=== PATIENT | female | born 1940 | race American Indian/Alaskan Native ===

== ENCOUNTER 2016-12-20 08:06 | Day surgery (SDC) | payer MEDICARE ==
[2016-12-20] MEDS ORDERED: ECOTRIN PO ONE (08:41)
[2016-12-20] MEDS ORDERED: NACL 0.9% 500 ML 500 ML IV SCH (09:00)
[2016-12-20 09:03] LABS: Hemoglobin 11.2 gm/dl (10.1-14.3); Mean Corpuscular HGB Conc 32 % (30-34); Mean Corpuscular Hemoglobin 28 pg (28-32); Mean Corpuscular Volume 86 fl (79-97); Platelet Count 148 K/mm3 (140-440); Red Blood Count 4.09 M/mm3 (3.65-5.03); Red Cell Distribution Width 13.1 % (13.2-15.2); White Blood Count 6.1 K/mm3 (4.5-11.0)
[2016-12-20 09:19] LABS: Anion Gap 15 mmol/L; BUN/Creatinine Ratio 21.25; Blood Urea Nitrogen 17 mg/dL (7-17); Calcium 9.6 mg/dL (8.4-10.2); Carbon Dioxide 29 mmol/L (22-30); Chloride 105.2 mmol/L (98-107); Glucose 110 mg/dL (65-100); Potassium 4.3 mmol/L (3.6-5.0); Sodium 145 mmol/L (137-145)
[2016-12-20 09:25] LABS: INR 1.01 (0.87-1.13)
[2016-12-20 09:44] LABS: Anisocytosis 1+; Basophils % (Manual) 0 % (0.0-1.8); Blastocytes % (Manual) 0 %
[2016-12-20 09:45] LABS: Burr Cells 2+; Diff Status Complete
[2016-12-20] MEDS ORDERED: HEPARIN/NS 5000 UNIT/500ML(CATH LAB) 1,000 ML IR ONE (10:01)
[2016-12-20] MEDS: SUBLIMAZE ONE ×3 (10:16→10:44)
[2016-12-20] MEDS: XYLOCAINE 2% INFILTRATI ONE ×2 (10:17→10:39)
[2016-12-20] MEDS: VERSED ONE ×3 (10:17→10:45)
[2016-12-20] MEDS: CALAN ONE ×2 (10:18→10:40)
[2016-12-20] MEDS: HEPARIN 10,000 UNITS/10 ML ONE ×2 (10:18→10:39)
--- NOTE | 2016-12-20 12:35 | Short Stay Summary ---
Short Stay Documentation Date of service: 12/20/16 - History H&P: obtained from office - Allergies and Medications Current Medications: Allergies hydrocortisone Allergy (Severe, Verified 12/20/16 08:45) Rash, Itching meperidine HCl [From Demerol] Allergy (Severe, Verified 12/20/16 08:44) Itching,Rash Penicillins Allergy (Verified 12/20/16 08:40) Rash Home Medications Medication Instructions Recorded Confirmed Last Taken Type Amlodipine Besylate [Amlodipine 5 mg PO DAILY 12/20/16 12/20/16 12/19/16 History Besylate] Aspirin [Adult Low Dose Aspirin EC] 81 mg PO DAILY 12/20/16 12/20/16 12/19/16 History Atenolol [Atenolol] 50 mg PO DAILY 12/20/16 12/20/16 12/19/16 History Citalopram Hydrobromide 40 mg PO DAILY 12/20/16 12/20/16 12/19/16 History [Citalopram HBr] Doxepin HCl 25 mg PO QHS 12/20/16 12/20/16 12/19/16 History Isosorbide Dinitrate [Isosorbide 30 mg PO DAILY 12/20/16 12/20/16 12/19/16 History Dinitrate] 30mg Pravastatin Sodium [Pravastatin 40 mg PO DAILY 12/20/16 12/20/16 12/19/16 History Sodium] Tramadol HCl [traMADol] 50 mg PO TID 12/20/16 12/20/16 12/19/16 History Active Medications Sodium Chloride (Nacl 0.9% 500 Ml) 500 mls @ 50 mls/hr IV DIRECT RICHARD Stop: 12/20/16 18:59 Last Admin: 12/20/16 09:22 Dose: 50 mls/hr - Brief post op/procedure progress note Date of procedure: 12/20/16 Pre-op diagnosis: chest pain, abnormal stress test Procedure: left heart cath - Hospital course Hospital course: Please see dictated cath report. - Disposition Condition at discharge: Stable - Discharge Diagnoses (1) Abnormal stress test Status: Acute (2) Chest pain Status: Acute Qualifiers: Chest pain type: C (3) CAD (coronary artery disease) Status: Chronic Qualifiers: Coronary Disease-Associated Artery/Lesion type: C [place] vs. transplanted heart: N Associated angina: A (4) History of PTCA Status: Chronic (5) Hypertension Status: Chronic Qualifiers: Hypertension type: H (6) Hyperlipidemia Status: Chronic Qualifiers: Hyperlipidemia type: H Short Stay Discharge Plan Activity: advance as tolerated Weight Bearing Status: Weight Bear as Tolerated Diet: low fat, low cholesterol Wound: keep clean and dry Additional Instructions: Make follow up appointment with in 1 week [phone] Follow up with: PRIMARY CAREMD [Primary Care Provider] - 7 Days KHAI MENDIOLA MD [Staff Physician] - 7 Days Forms: CardCath PCI D/C Instructions, Work/School Excuse Out Patient, Post Sedation D/C Instructions
[2016-12-20 14:24] VITALS: BP 111/50
--- NOTE | 2016-12-23 11:06 | Cardiac Catherization Report ---
CARDIAC CATHETERIZATION CLINICAL INFORMATION: A 76-year-old white female patient of Dr. Beverly with persistent chest pains and abnormal stress thallium with a medium sized partially reversible anterior and lateral defect is scheduled for cardiac catheterization as an outpatient. The patient is aware of the procedure, potential complications, and alternatives of therapy available. The patient has history of coronary artery stenting in the past. DESCRIPTION OF PROCEDURE: The patient was brought to the catheterization laboratory in a fasting condition. The right wrist area and forearm thoroughly cleansed with Betadine solution and sterile drapes were applied. Local anesthesia was achieved using 2% Xylocaine. Right radial artery puncture was made using 21-gauge arterial puncture needle. The patient received 5 mg of intra-arterial verapamil and units of intravenous heparin. Using 5-Dutch multipurpose catheter, left ventriculogram was performed using hand injections. Subsequently, angiograms of the left coronary artery were obtained in multiple views followed by angiograms of the right coronary artery in multiple views. At the end of the procedure, catheter and sheath were removed. Good hemostasis was achieved. Following findings were noted. FINDINGS: 1. HEMODYNAMICS: Opening aortic pressure 144/64, left ventricular pressure 144/22. No gradient across the aortic valve. Estimated ejection fraction 65%. 2. Left ventriculogram done in CRUZ projection showed normal sized left ventricle with normal contractility. Only limited amount of dye was injected. 3. Right coronary artery dominant vessel, arises normally from right coronary cusp. There is smooth 30% mid lesion. Otherwise, this dominant vessel does ____ significant disease. Left coronary artery arises normally from left coronary cusp, left main without significant disease. There is widely patent stent noted in the proximal LAD. Otherwise, rest of the LAD which curves around the apex and circumflex artery and its branch are angiographically smooth and normal. FINAL IMPRESSION: Normal sized left ventricle with normal contractility with widely patent stent in the proximal LAD, mild 30% disease in the mid RCA. Otherwise, rest of the coronaries are angiographically smooth and normal. The patient tolerated the procedure well. Continue present medical therapy and risk factor modification. JOB# [id number] IVA/CATY
== END 2016-12-20 14:45 | disposition home or self-care (01) ==
LOC: CATH 08:06
PROVIDERS: ATTEND Internal Medicine
DX: I25.10 Atherosclerotic heart disease of native coronary artery without angina pectoris (principal); I10 Essential (primary) hypertension; E78.5 Hyperlipidemia, unspecified; E11.9 Type 2 diabetes mellitus without complications; Z95.5 Presence of coronary angioplasty implant and graft; E66.9 Obesity, unspecified; Z68.31 Body mass index [BMI] 31.0-31.9, adult; Z79.899 Other long term (current) drug therapy; Z79.01 Long term (current) use of anticoagulants; Z79.82 Long term (current) use of aspirin; Z87.891 Personal history of nicotine dependence; Z82.49 Family history of ischemic heart disease and other diseases of the circulatory system
CPT/HCPCS: 36415; 80048; 85007; 85025; 85610; 85730; 93005; 93010; 93458; C1894; J1644; J2250; J3010; J7040; Q9967